=== PATIENT | male | born 1995 | race Caucasian/White ===

== ENCOUNTER 2016-07-08 06:23 | Emergency (ER) | payer BC ==
[2016-07-08 06:37] VITALS: TEMP 98.4
--- NOTE | 2016-07-08 06:50 | CPEKG ---
Heart Rate: 69 RR Interval: 870 P-R Interval: 148 QRSD Interval: 88 QT Interval: 376 QTC Interval: 403 P [place]uther[place]: 64 QRS [place]uther[place]: 86 T Wave [place]: 27 EKG Severity - NORMAL ECG - EKG Impression: SINUS RHYTHM Electronically Signed By: Batsheva Tam 08-Jul-2016 12:00:11
--- NOTE | 2016-07-08 07:12 | EDPHY ---
H & P Time Seen by Provider: 07/08/16 07:04 HPI/ROS: CHIEF COMPLAINT: Chest pain HISTORY OF PRESENT ILLNESS: This patient is a 20 year old man presenting with acute right-sided chest pain, which woke him from sleep at 5am this morning. The pain is localized focally to the right anterior chest and is pleuritic with deep inspiration. Moderate in severity. He took 400mg ibuprofen at 6am this morning, with mild alleviation. He denies recent heavy lifting or muscle strain. He is a non-smoker. Denies recent prolonged travel or immobilization. No recent illness. REVIEW OF SYSTEMS: Constitutional: No fever, no chills Eyes: No visual changes ENT: No sore throat Respiratory: No cough, no shortness of breath Cardiac: chest pain Gastrointestinal: No nausea, no vomiting, no abdominal pain Genitourinary: No hematuria, no dysuria Musculoskeletal: No leg pain or swelling Skin: No rash Neurological: No headache, no numbness, no weakness Psychiatric: No depression Past Medical/Surgical History: Denies Social History: [employer] student, non-smoker, drinks alcohol occasionally (with binge drinking), denies cocaine, denies methamphetamine, denies IV drug use, occasionally smokes marijuana Smoking Status: Never smoked Physical Exam: General Appearance: Alert, no distress Eyes: Pupils equal and round, no conjunctival pallor or injection ENT, Mouth: Mucous membranes moist Neck: Normal inspection Respiratory: Lungs are clear to auscultation Cardiovascular: Regular rate and rhythm Gastrointestinal: Abdomen is soft and non- tender Neurological: A&O, nonfocal, normal gait Skin: Warm and dry, no rash Extremities: Nontender, no pedal edema Psychiatric: Mood and affect normal Constitutional: Initial Vital Signs Temperature (C) 36.9 C 07/08/16 06:32 Heart Rate 78 07/08/16 06:32 Respiratory Rate 16 07/08/16 06:32 Blood Pressure 128/81 H 07/08/16 06:32 O2 Sat (%) 98 07/08/16 06:32 O2 Delivery Mode Room Air Allergies/Adverse Reactions: No Known Allergies Allergy (Unverified 07/08/16 06:32) Home Medications: Medication Instructions Recorded No Medications [NO HOME 1 ea MISC 02/12/11 MEDICATIONS] Hydrocodone/APAP 5/325 [[place] 1 - 2 tab PO Q4H PRN #10 tab 07/08/16 5/325] Medical Decision Making - Diagnostics EKG Interpretation: The 12 lead EKG was interpreted by myself. Sinus rhythm, rate 69. See hard copy and/or "tracemaster" electronic copy for interpretation. Imaging: Chest X-ray was obtained. I viewed the images myself on the PACS system. My interpretation of the images is: No acute findings. Negative for pneumothorax. The radiologist interpretation is pending at this time. I discussed the x-ray findings with the patient. ED Course/Re-evaluation: IV established. Vital signs are normal. Patient is not hypoxemic or tachycardic. EKG demonstrates normal sinus rhythm, with no ischemic changes. Chest x-ray is normal. There is no evidence of pneumothorax or infiltrate. CBC and d-dimer ordered. IV Toradol ordered for pain relief. 0800: Re-evaluation. Patient is sleeping in the room. He feels better after the IV Toradol. D-dimer is negative. CBC shows mildly elevate WBC of 12,000. Patient is afebrile. Presentation c/w musculoskeletal pain. I feel that I can safely exclude PE in this pt; PERC score zero. Normal EKG and no RF for ACS in young pt. No PTX/pneumonia/pericarditis present. Patient will be discharged to home with customary instructions and return precautions. Differential Diagnosis: includes though not limited to PE, PTX, pneumonia, ACS, pericarditis - Data Points Laboratory Results: Laboratory Results 07/08/16 06:55 07/08/16 06:55 Medications Given: Discontinued Medications Sodium Chloride (Ns) 1,000 mls @ 0 mls/hr IV ONCE ONE PRN Reason: Wide Open Stop: 07/08/16 07:41 Last Admin: 07/08/16 07:35 Dose: 1,000 mls Ketorolac Tromethamine (Toradol) 30 mg IVP EDNOW ONE Stop: 07/08/16 07:19 Last Admin: 07/08/16 07:40 Dose: 30 mg Departure - Departure Disposition: Home, Routine, Self-Care Clinical Impression: Pleurisy Condition: Good Instructions: Pleurisy (ED) Additional Instructions: Adult Pain & Fever Control: We recommend Acetaminophen (Tylenol) and Ibuprofen (Motrin,Advil) for pain and fever control. When fever is high or pain severe, both drugs can be used at the same time, but at different intervals. Please note the time differences. Your dose is: Acetaminophen 650mg every 4 to 6 hours Ibuprofen 600mg every 6-8 hours with food Note: do not take Acetaminophen with Hydrocodone (Vicodin, Lortab) or Oycodone (Percocet). These medications also contain Acetaminophen. No more than 3000mg of Acetaminophen should be taken in 24 hours (for an adult). Return to the Emergency Department for fever, worsening chest pain, shortness of breath, or other worsening of condition. Referrals: SAMARIA Allen,. [Clinic] - As per Instructions Prescriptions: Hydrocodone/APAP 5/325 [[place] 5/325] 1 - 2 tab PO Q4H PRN #10 tab PRN Reason: Pain, Moderate Report Scribed for: Batsheva Tam Report Scribed by: Aysha Wilcox Date of Report: 07/08/16 Time of Report: 07:14 Physician Review and Approval Statement: 07/08/16 07:29 Portions of this note were transcribed by a medical technicians. I personally performed a history, physical exam, medical decision making, and confirmed accuracy of information the transcribed note.
[2016-07-08 07:13] VITALS: O2SAT 95
[2016-07-08] MEDS ORDERED: KETOROLAC 30 MG/1 ML SDV IVP ONE (07:18)
[2016-07-08 07:23] LABS: % IMMATURE GRANULYOCYTES 0.2 % (0.0-1.1); ABSOLUTE IMMATURE GRANULOCYTES 0.03 10^3/uL (0.00-0.10); ADD DIFF? NO; ADD MORPH? NO; ADD SCAN? NO; ATYPICAL LYMPHOCYTE FLAG 10 (0-99); FRAGMENT RBC FLAG 0 (0-99); HEMATOCRIT 46.2 % (40.0-51.0); HEMOGLOBIN 15.8 g/dL (13.7-17.5); LEFT SHIFT FLG 0 (0-99); LIPEMIA HEMOLYSIS FLAG 90 (0-99); MEAN CELL HEMOGLOBIN CONCENTR. 34.2 g/dL (32.4-36.7); MEAN CELL VOLUME 84.9 fL (81.5-99.8); MEAN PLATELET VOLUME 9.1 fL (8.7-11.7); PLATELET CLUMPS FLAG 20 (0-99); PLATELET COUNT 312 10^3/uL (150-400); RED BLOOD CELL COUNT 5.44 10^6/uL (4.40-6.38); RED CELL DISTRIBUTION WIDTH 12.9 % (11.5-15.2)
[2016-07-08] MEDS ORDERED: NS 1,000 ML IV ONE (07:40)
[2016-07-08 08:00] LABS: ANION GAP 14 mEq/L (8-16); CALCIUM 10.2 mg/dL (8.5-10.4); CARBON DIOXIDE 23 mEq/l (22-31); CHLORIDE 105 mEq/L (97-110); CREATININE 1.1 mg/dL (0.7-1.3); GLOMERULAR FILTRATION RATE > 60; GLUCOSE 96 mg/dL (70-100); POTASSIUM 4.5 mEq/L (3.5-5.2); SODIUM 142 mEq/L (134-144)
[2016-07-08 08:19] VITALS: BP 120/71; PULSE 76; RESP 15
== END 2016-07-08 08:19 | disposition home or self-care (01) ==
DX: R09.1 Pleurisy (principal)
CPT/HCPCS: 96374; J1885